=== PATIENT | male | born 1980 | race Caucasian/White ===

== ENCOUNTER 2021-01-03 15:27 | Day surgery (SDC) | payer OTHER ==
[2012-02-27 14:30] VITALS: BP 137/82
[2021-01-03] MEDS ORDERED: Decadron 4 MG INJ IV ONE (15:28)
[2021-01-03] MEDS ORDERED: LIDOCAINE HCL 2% 100 MG/5 ML IJ ONE (15:28)
[2021-01-03] MEDS ORDERED: Lactated Ringers 1,000 ML IV ONE (15:51)
[2021-01-03] MEDS ORDERED: DIPRIVAN 200 MG/20 ML IV ONE (16:42)
--- NOTE | 2021-01-03 19:06 | XRAY ---
Indication: Right C2-C4 MBB. Intraoperative fluoroscopy provided for 34 seconds. 2 digital spot images submitted for interpretation demonstrates posterior needle tips projecting over the expected right C2-C4 nerve roots. Correlate with intraoperative findings/report.
--- NOTE | 2021-01-04 08:40 | XRAY ---
34 seconds fluoroscopy time in surgery for right C2-C5 MBB.
== END 2021-01-03 17:15 | disposition home or self-care (01) ==
LOC: SDC-PAIN 15:27
PROVIDERS: ATTEND Psychiatry & Neurology Pain Medicine
DX: M47.812 Spondylosis without myelopathy or radiculopathy, cervical region (principal); Z79.899 Other long term (current) drug therapy
CPT/HCPCS: 64490; 64491; 72040; 77002; J1100; J2704

== ENCOUNTER 2021-02-07 13:21 | Day surgery (SDC) | payer OTHER ==
[2012-02-27 14:30] VITALS: BP 137/82
[2021-02-07] MEDS ORDERED: Decadron 4 MG INJ IV ONE (13:22)
[2021-02-07] MEDS ORDERED: BUPIVACAINE 0.5% VIAL IJ ONE (13:22)
[2021-02-07] MEDS ORDERED: DIPRIVAN 200 MG/20 ML IV ONE (15:21)
[2021-02-07] MEDS ORDERED: Lactated Ringers 1,000 ML IV ONE (16:31)
--- NOTE | 2021-02-07 16:57 | XRAY ---
Indication: Right C2-C5 MBB. Intraoperative fluoroscopy provided for 36 seconds. 2 digital spot image submitted for interpretation demonstrates posterior needle tips projecting over the expected right C2-C5 nerve roots. Correlate with intraoperative findings/report.
--- NOTE | 2021-02-07 20:45 | XRAY ---
36 seconds of fluoroscopy was used in surgery for a right C2-C5 MBB.
== END 2021-02-07 15:53 | disposition home or self-care (01) ==
LOC: SDC-PAIN 13:21
PROVIDERS: ATTEND Psychiatry & Neurology Pain Medicine
DX: M47.812 Spondylosis without myelopathy or radiculopathy, cervical region (principal); Z79.899 Other long term (current) drug therapy
CPT/HCPCS: 64490; 64491; 64492; 72040; 77002; J1100; J2704

== ENCOUNTER 2021-02-21 09:22 | Day surgery (SDC) | payer OTHER ==
[2012-02-27 14:30] VITALS: BP 137/82
[2021-02-21] MEDS ORDERED: BUPIVACAINE 0.5% VIAL IJ ONE (09:23)
[2021-02-21] MEDS ORDERED: Decadron 4 MG INJ IV ONE (09:23)
[2021-02-21] MEDS ORDERED: Xylocaine 1% Vial 30 ML PF IJ ONE (09:23)
[2021-02-21] MEDS ORDERED: DIPRIVAN 200 MG/20 ML IV ONE ×2 (11:03→11:14)
--- NOTE | 2021-02-21 12:23 | XRAY ---
Indication: Right C2-C5 RFA. Intraoperative fluoroscopy provided for 43 seconds. 4 digital spot images submitted for interpretation demonstrates posterior needle tips projecting over the expected right C2-C5 nerve roots. Correlate with intraoperative findings/report.
--- NOTE | 2021-02-21 12:23 | XRAY ---
43 seconds of fluoroscopy was used in surgery for a right C2-C5 RFA.
[2021-02-21] MEDS ORDERED: Lactated Ringers 1,000 ML IV ONE (12:27)
== END 2021-02-21 11:47 | disposition home or self-care (01) ==
LOC: SDC-PAIN 09:22
PROVIDERS: ATTEND Psychiatry & Neurology Pain Medicine
DX: M47.812 Spondylosis without myelopathy or radiculopathy, cervical region (principal); Z79.899 Other long term (current) drug therapy
CPT/HCPCS: 64633; 64634; 72040; 77002; J1100; J2001; J2704

== ENCOUNTER 2022-05-08 15:06 | Day surgery (SDC) | payer OTHER ==
[2012-02-27 14:30] VITALS: BP 137/82
[2022-05-08] MEDS ORDERED: LIDOCAINE HCL 1% 50 MG/5 ML VL PF IJ ONE (15:07)
[2022-05-08] MEDS ORDERED: Decadron 4 MG INJ IV ONE (15:07)
[2022-05-08] MEDS ORDERED: BUPIVACAINE 0.5% VIAL IJ ONE (15:07)
[2022-05-08] MEDS ORDERED: Versed 2 MG/2 ML Injection ONE (15:50)
[2022-05-08] MEDS ORDERED: DIPRIVAN 200 MG/20 ML IV ONE ×2 (17:04→17:10)
[2022-05-08] MEDS ORDERED: Lactated Ringers 1,000 ML IV ONE (17:07)
--- NOTE | 2022-05-08 21:30 | XRAY ---
Indication: Right C2-C5 RFA. Intraoperative fluoroscopy provided for 1 minutes 15 seconds. 7 digital spot image submitted for interpretation demonstrates posterior needle tips projecting over the expected right C2-C5 nerve roots. Correlate with intraoperative findings/report.
--- NOTE | 2022-05-09 09:19 | XRAY ---
One minute and 15 seconds of fluoroscopy was used in surgery for a right C2-C5 RFA.
== END 2022-05-08 17:58 | disposition home or self-care (01) ==
LOC: SDC-PAIN 15:06
PROVIDERS: ATTEND Psychiatry & Neurology Pain Medicine
DX: M47.812 Spondylosis without myelopathy or radiculopathy, cervical region (principal); Z79.899 Other long term (current) drug therapy
CPT/HCPCS: 64633; 64634; 72040; 77002; J1100; J2001; J2250; J2704

== ENCOUNTER 2023-06-04 07:51 | Day surgery (SDC) | payer MEDICARE ==
[2012-02-27 14:30] VITALS: BP 137/82
[2023-06-04] MEDS ORDERED: Sodium Chloride 0.9(Preservative Free) 10 ML IJ ONE (07:52)
[2023-06-04] MEDS ORDERED: Depo-Medrol 40 MG/ML IM ONE (07:52)
[2023-06-04] MEDS ORDERED: XYLOCAINE-MPF 1% 5ML SDV IJ ONE (07:52)
[2023-06-04] MEDS ORDERED: DIPRIVAN 200 MG/20 ML IV ONE ×2 (09:53→10:04)
--- NOTE | 2023-06-04 10:41 | XRAY ---
Indication: Lumbar SHIVAM. Intraoperative fluoroscopy provided for 31 seconds. 3 digital spot image submitted for interpretation demonstrates posterior needle tip projecting just posterior to lumbosacral junction. Small amount of contrast injected for needle tip placement. Correlate with intraoperative findings/report.
--- NOTE | 2023-06-04 10:57 | XRAY ---
31 seconds of fluoroscopy was used in surgery for a lumbar SHIVAM.
[2023-06-04] MEDS ORDERED: Lactated Ringers 1,000 ML IV ONE (11:08)
== END 2023-06-04 10:27 | disposition home or self-care (01) ==
LOC: SDC-PAIN 07:51
PROVIDERS: ATTEND Psychiatry & Neurology Pain Medicine
DX: M54.16 Radiculopathy, lumbar region (principal); R73.03 Prediabetes
CPT/HCPCS: 62323; 72100; 77003; 82947; J1030; J2704; Q9966